=== PATIENT | female | born 2000 | race Two or more races ===

== ENCOUNTER 2018-02-21 16:00 | Observation (INO) | payer MEDICAID, OTHER | END 2018-02-21 17:15 | disposition home or self-care (01) | DRG 566 | LOC: LDRP 16:00 | PROVIDERS: ADMIT Obstetrics & Gynecology; ATTEND Obstetrics & Gynecology | DX: O46.8X2 Other antepartum hemorrhage, second trimester (principal); K62.5 Hemorrhage of anus and rectum; Z3A.25 25 weeks gestation of pregnancy | CPT/HCPCS: 59025; 76815; 81002; G0378 ==

== ENCOUNTER 2018-04-19 10:27 | Observation (INO) | payer MEDICAID ==
[2018-04-19 11:54] LABS: Basophils # (auto) 0 uL; Mean Corpuscular Volume 74.3 fL (80.0-100.0); Monocytes # (auto) 0.8 uL; White Blood Cell 11.6 10^3/uL (4.4-10.8)
[2018-04-19 11:56] LABS: Basophils % (auto) 0.2 % (0.0-2.0); Eosinophils # (auto) 0 uL; Eosinophils % (auto) 0.4 % (0.0-7.0); Hematocrit 33.1 % (36.0-46.0); Lymphocytes # (auto) 2.2 uL; Mean Corpuscular Hemoglobin 24.7 pg (28.0-32.0); Mean Corpuscular Hgb Conc. 33.3 g/dL (32.0-36.0); Monocytes % (auto) 7.3 % (0.0-12.0); Neutrophils # (auto) 8.5 uL; Neutrophils % (auto) 73.1 % (37.0-80.0); Nucleated Red Blood Cells % 0.1 %; Platelet Count (auto) 249 10^3/uL (140-450); Red Blood Cells 4.46 10^6/uL (4.0-5.20); Red Cell Distribution Width 15.5 % (11.8-14.3)
[2018-04-19 12:07] LABS: INR 0.95 (0.9-1.15); Partial Thromboplastin Time 29.5 sec (23.78-33.04); Prothrombin Time 10.2 sec (9.27-12.13)
[2018-04-19 12:09] LABS: Albumin 2.7 g/dL (3.4-5.0); BUN/Creatinine Ratio 18.2; Bilirubin, Total 0.2 mg/dL (0.2-1.0); Total Protein 7.3 g/dL (6.4-8.2); Uric Acid 3.7 mg/dL (2.6-6.0)
[2018-04-19 12:11] LABS: Urine Bacteria MOD /hpf (None Seen); Urine Blood Negative /uL (Negative); Urine Mucus FEW (None Seen); Urine Specific Gravity 1.019 (1.001-1.035); Urine WBC 26 /hpf (0 - 5)
[2018-04-26] MEDS ORDERED: PREN-96 PO (12:06)
== END 2018-04-19 12:40 | disposition home or self-care (01) | DRG 566 ==
LOC: LDRP 10:27
PROVIDERS: ADMIT Obstetrics & Gynecology; ATTEND Obstetrics & Gynecology
DX: O26.893 Other specified pregnancy related conditions, third trimester (principal); Z3A.34 34 weeks gestation of pregnancy
CPT/HCPCS: 36415; 59025; 76805; 80053; 81001; 81002; 84550; 85025; 85610; 85730; G0378

== ENCOUNTER 2018-05-17 10:05 | Observation (INO) | payer MEDICAID ==
[~2018-05-17 10:05] MED LIST: FOLI1TAB6 PO; PREN-96 PO
== END 2018-05-17 11:20 | disposition home or self-care (01) | DRG 566 ==
LOC: LDRP 10:05
PROVIDERS: ADMIT Obstetrics & Gynecology; ATTEND Obstetrics & Gynecology
DX: O99.89 Other specified diseases and conditions complicating pregnancy, childbirth and the puerperium (principal); N13.30 Unspecified hydronephrosis; Z3A.37 37 weeks gestation of pregnancy
CPT/HCPCS: 59025; 81002; G0378

== ENCOUNTER 2018-05-24 09:45 | Observation (INO) | payer MEDICAID | END 2018-05-24 11:00 | disposition home or self-care (01) | DRG 566 | LOC: LDRP 09:45 | PROVIDERS: ADMIT Specialist; ATTEND Specialist | DX: O99.89 Other specified diseases and conditions complicating pregnancy, childbirth and the puerperium (principal); N13.30 Unspecified hydronephrosis; O10.913 Unspecified pre-existing hypertension complicating pregnancy, third trimester; Z3A.38 38 weeks gestation of pregnancy | CPT/HCPCS: 59025; 81002; G0378 ==

== ENCOUNTER 2018-05-31 10:55 | Observation (INO) | payer MEDICAID | END 2018-05-31 12:42 | disposition home or self-care (01) | DRG 566 | LOC: LDRP 10:55 | PROVIDERS: ADMIT Obstetrics & Gynecology; ATTEND Obstetrics & Gynecology | DX: O99.89 Other specified diseases and conditions complicating pregnancy, childbirth and the puerperium (principal); N13.30 Unspecified hydronephrosis; O10.913 Unspecified pre-existing hypertension complicating pregnancy, third trimester; Z3A.39 39 weeks gestation of pregnancy | CPT/HCPCS: 59025; 76805; 76818; 81002; G0378 ==

== ENCOUNTER 2018-06-05 08:55 | Observation (INO) | payer MEDICAID | END 2018-06-05 10:08 | disposition home or self-care (01) | DRG 566 | LOC: LDRP 08:55 | PROVIDERS: ADMIT Obstetrics & Gynecology; ATTEND Obstetrics & Gynecology | DX: O48.0 Post-term pregnancy (principal); O13.3 Gestational [pregnancy-induced] hypertension without significant proteinuria, third trimester; Z3A.40 40 weeks gestation of pregnancy | CPT/HCPCS: 59025; 76818; 81002; G0378 ==

== ENCOUNTER 2018-06-07 09:55 | Observation (INO) | payer MEDICAID ==
[2018-06-07 12:59] LABS: Albumin 2.4 g/dL (3.4-5.0); BUN/Creatinine Ratio 14.3; Bilirubin, Total 0.2 mg/dL (0.2-1.0); Calcium 8.2 mg/dL (8.5-10.1); Potassium 3.7 mmol/L (3.5-5.1); Total Protein 6.7 g/dL (6.4-8.2); Uric Acid 4.5 mg/dL (2.6-6.0)
[2018-06-07 13:00] LABS: Urine Bacteria FEW /hpf (None Seen); Urine Blood Negative /uL (Negative); Urine Specific Gravity 1.012 (1.001-1.035); Urine WBC 5 /hpf (0 - 5)
[2018-06-07 13:03] LABS: Basophils # (auto) 0 uL; Basophils % (auto) 0.3 % (0.0-2.0); Eosinophils # (auto) 0 uL; Lymphocytes # (auto) 1.7 uL; Lymphocytes % (auto) 18.1 % (10.0-50.0); Mean Corpuscular Hemoglobin 25.8 pg (28.0-32.0); Nucleated Red Blood Cells % 0.1 %
[2018-06-07 13:08] LABS: Eosinophils % (auto) 0.4 % (0.0-7.0); Hematocrit 34.1 % (36.0-46.0); Hemoglobin 11.6 g/dL (12.2-16.2); Mean Corpuscular Hgb Conc. 34.1 g/dL (32.0-36.0); Mean Corpuscular Volume 75.7 fL (80.0-100.0); Monocytes # (auto) 0.5 uL; Monocytes % (auto) 5.2 % (0.0-12.0); Neutrophils # (auto) 7.3 uL; Platelet Count (auto) 192 10^3/uL (140-450); Red Blood Cells 4.51 10^6/uL (4.0-5.20); Red Cell Distribution Width 19.3 % (11.8-14.3); White Blood Cell 9.6 10^3/uL (4.4-10.8)
[2018-06-07 13:25] LABS: INR 0.9 (0.9-1.15); Partial Thromboplastin Time 28.5 sec (23.78-33.04); Prothrombin Time 9.7 sec (9.27-12.13)
[2018-06-07] MEDS ORDERED: FERR-7 PO (14:42)
== END 2018-06-07 14:30 | disposition home or self-care (01) | DRG 566 ==
LOC: LDRP 09:55
PROVIDERS: ADMIT Specialist; ATTEND Specialist
DX: O26.893 Other specified pregnancy related conditions, third trimester (principal); O48.0 Post-term pregnancy; R10.30 Lower abdominal pain, unspecified; Z3A.40 40 weeks gestation of pregnancy
CPT/HCPCS: 36415; 59025; 76818; 80053; 81001; 81002; 84550; 85025; 85362; 85379; 85610; 85730; G0378

== ENCOUNTER 2018-06-08 01:44 | Inpatient (IN) | payer MEDICAID ==
[~2018-06-08] VITALS: Ht 165.1 cm; Wt 117.5 kg
[~2018-06-08 01:44] MED LIST changes: +FERR-7 PO
[2018-06-08] MEDS: LACTATED RINGER'S 1,000 ML IV SCH ×2 (04:21→10:48)
[2018-06-08] MEDS ORDERED: LACT. RINGERS/OXYTOCIN 20UNITS 1,000 ML IV SCH (04:26)
[2018-06-08] MEDS ORDERED: CARBOPROST TROMETHAMINE 250 MCG/1ML VIAL IM PRN (04:30)
[2018-06-08] MEDS ORDERED: PHISODERM TOP SOLN 240ML BTL TOP PRN (04:30)
[2018-06-08] MEDS ORDERED: WITCH HAZEL-GLYCERIN PAD TOP PRN (04:30)
[2018-06-08] MEDS ORDERED: NALOXONE HCL 0.4 MG/ML VIAL IV ONE ×2 (04:30→06:30)
[2018-06-08] MEDS ORDERED: NALBUPHINE HCL 10 MG/1ml INJECTION IV PRN (04:30)
[2018-06-08] MEDS ORDERED: LIDOCAINE HCL 2 %PF INJ 10ML AMP IJ ONE (04:30)
[2018-06-08] MEDS ORDERED: LIDOCAINE 2% (LOCAL ANESTH.) PF 5ml SDV ID ONE ×3 (04:30→05:30)
[2018-06-08] MEDS ORDERED: fentaNYL W ROPIVACAINE 150 ML EPI SCH ×2 (04:30→06:30)
[2018-06-08] MEDS ORDERED: fentaNYL CITRATE 100 MCG/2 ML VL IV ONE (04:30)
[2018-06-08] MEDS ORDERED: METHYLERGONOVINE MALEATE 0.2 MG/ML AMP IM PRN (04:30)
[2018-06-08] MEDS ORDERED: DERMOPLAST 60ML BOTTLE TOP PRN (04:30)
[2018-06-08] MEDS ORDERED: ePHEDrine SULFATE 50 MG/ML AMP IV ONE ×2 (04:30→06:30)
[2018-06-08] MEDS ORDERED: LIDOCAINE 2%HCL (LOCAL ANESTH.) INJ 10ml MDV IJ ONE (04:45)
[2018-06-08 05:00] LABS: Basophils # (auto) 0.1 uL; Eosinophils # (auto) 0.1 uL; Hemoglobin 12.7 g/dL (12.2-16.2); Lymphocytes # (auto) 1.8 uL; Mean Corpuscular Hemoglobin 25.1 pg (28.0-32.0); Mean Corpuscular Hgb Conc. 33.2 g/dL (32.0-36.0); Red Cell Distribution Width 19.2 % (11.8-14.3); White Blood Cell 15.3 10^3/uL (4.4-10.8)
[2018-06-08 05:01] LABS: Basophils % (auto) 0.4 % (0.0-2.0); Eosinophils % (auto) 0.3 % (0.0-7.0); Hematocrit 38.1 % (36.0-46.0); Lymphocytes % (auto) 11.7 % (10.0-50.0); Mean Corpuscular Volume 75.6 fL (80.0-100.0); Monocytes # (auto) 0.9 uL; Monocytes % (auto) 5.6 % (0.0-12.0); Neutrophils # (auto) 12.5 uL; Platelet Count (auto) 219 10^3/uL (140-450); Red Blood Cells 5.04 10^6/uL (4.0-5.20)
[2018-06-08 05:14] LABS: INR 0.87 (0.9-1.15); Partial Thromboplastin Time 29.2 sec (23.78-33.04); Prothrombin Time 9.4 sec (9.27-12.13)
[2018-06-08 05:15] LABS: Albumin 2.6 g/dL (3.4-5.0); BUN/Creatinine Ratio 17.6; Bilirubin, Total 0.2 mg/dL (0.2-1.0); Calcium 8.3 mg/dL (8.5-10.1); Potassium 3.8 mmol/L (3.5-5.1); Total Protein 7.3 g/dL (6.4-8.2)
[2018-06-08] MEDS ORDERED: LIDOCAINE 2% (LOCAL ANESTH.) PF 5ml SDV IJ ONE (06:00)
[2018-06-08] MEDS ORDERED: SODIUM CHLORIDE 0.9% 500 ML IV PRN (06:25)
[2018-06-08 07:28] LABS: Urine Bacteria NONE SEEN /hpf (None Seen); Urine Blood 1+ /uL (Negative); Urine Specific Gravity 1.011 (1.001-1.035); Urine WBC 11 /hpf (0 - 5)
[2018-06-08] MEDS ORDERED: IBUPROFEN 600 MG TAB PO PRN (09:00)
[2018-06-08] MEDS: DOCUSATE CALCIUM 240 MG CAP PO SCH (10:00)
[2018-06-08 15:30] VITALS: BP 133/79
[2018-06-08 19:00] VITALS: BP 137/87
[2018-06-08 23:00] VITALS: BP 118/66
[2018-06-09 03:07] VITALS: BP 121/61
[2018-06-09 05:11] LABS: RPR Non Reactive (Non Reactive)
[2018-06-09 07:20] VITALS: BP 114/51
[2018-06-09] MEDS: DOCUSATE CALCIUM 240 MG CAP PO SCH (10:39)
[2018-06-09] MEDS ORDERED: MIDAZOLAM HCL 1MG/1ML-2 ML VIAL ONE (11:43)
[2018-06-09] MEDS ORDERED: ANGIOMAX 250 MG VIAL IV ONE (11:43)
[2018-06-09] MEDS ORDERED: SODIUM CHL 0.9% 0 ML ONE (11:43)
[2018-06-09] MEDS ORDERED: fentaNYL CITRATE 100 MCG/2 ML VL ONE (11:44)
== END 2018-06-09 11:30 | disposition home or self-care (01) | DRG 560 ==
LOC: LDRP 01:44 → OBSVTOIN 01:44 → LDRP 08:50
PROVIDERS: ADMIT Specialist; ATTEND Specialist
PROC: 10E0XZZ Delivery of Products of Conception, External Approach (ICD-10-PCS; principal; 2018-06-08)
PROC: 0KQM0ZZ Repair Perineum Muscle, Open Approach (ICD-10-PCS; 2018-06-08)
PROC: 3E0R3BZ Introduction of Anesthetic Agent into Spinal Canal, Percutaneous Approach (ICD-10-PCS; 2018-06-08)
PROC: 00HU33Z Insertion of Infusion Device into Spinal Canal, Percutaneous Approach (ICD-10-PCS; 2018-06-08)
DX: O16.4 Unspecified maternal hypertension, complicating childbirth (principal); O77.0 Labor and delivery complicated by meconium in amniotic fluid; O70.1 Second degree perineal laceration during delivery; Z37.0 Single live birth; Z3A.40 40 weeks gestation of pregnancy; Z87.19 Personal history of other diseases of the digestive system
CPT/HCPCS: 36415; 51702; 59025; 59409; 62282; 80053; 81001; 81002; 85025; 85610; 85730; 86592; 86850; 86900; 86901; 90471; 94762; 96365; 96366; G0378; J2001; J2250; J2590; J3010

== ENCOUNTER 2018-07-02 08:04 | Emergency (ER) | payer MEDICAID ==
[~2018-07-02] VITALS: Ht 165.1 cm; Wt 103.4 kg
[2018-07-02 08:11] VITALS: BP 143/91
[2018-07-02 08:37] LABS: Urine Bacteria FEW /hpf (None Seen); Urine Blood 2+ /uL (Negative); Urine Specific Gravity 1.015 (1.001-1.035); Urine WBC 49 /hpf (0 - 5)
[2018-07-02 09:50] LABS: Basophils # (auto) 0 uL; Basophils % (auto) 0.3 % (0.0-2.0); Eosinophils # (auto) 0 uL; Hemoglobin 13.3 g/dL (12.2-16.2); Lymphocytes # (auto) 1.5 uL; Monocytes # (auto) 0.4 uL; Neutrophils # (auto) 9.2 uL; White Blood Cell 11.2 10^3/uL (4.4-10.8)
[2018-07-02 09:53] LABS: Eosinophils % (auto) 0.2 % (0.0-7.0); Hematocrit 40.3 % (36.0-46.0); Lymphocytes % (auto) 13.4 % (10.0-50.0); Mean Corpuscular Hemoglobin 24.6 pg (28.0-32.0); Mean Corpuscular Hgb Conc. 32.9 g/dL (32.0-36.0); Mean Corpuscular Volume 74.6 fL (80.0-100.0); Monocytes % (auto) 3.4 % (0.0-12.0); Neutrophils % (auto) 82.7 % (37.0-80.0); Nucleated Red Blood Cells % 0.2 %; Platelet Count (auto) 292 10^3/uL (140-450); Red Cell Distribution Width 17.4 % (11.8-14.3)
[2018-07-02 10:10] LABS: Albumin 3.8 g/dL (3.4-5.0); Bilirubin, Total 0.5 mg/dL (0.2-1.0); Calcium 8.6 mg/dL (8.5-10.1); Potassium 3.6 mmol/L (3.5-5.1); Total Protein 7.8 g/dL (6.4-8.2)
[2018-07-02] MEDS ORDERED: KETOROLAC TROMETH 60MG/2ML VIAL IM ONE (10:15)
== END 2018-07-02 10:46 | disposition home or self-care (01) ==
LOC: ER 08:04
DX: K80.20 Calculus of gallbladder without cholecystitis without obstruction (principal); N39.0 Urinary tract infection, site not specified
CPT/HCPCS: 36415; 76705; 80053; 81001; 81025; 83690; 85025; 96372; 99285; J1885

== ENCOUNTER 2020-11-23 10:04 | Emergency (ER) | payer MEDICAID ==
[~2020-11-23] VITALS: Ht 165.1 cm; Wt 132.0 kg
[2020-11-23 10:07] VITALS: BP 137/77
[2020-11-23] MEDS ORDERED: KETOROLAC TROMETH 30 MG/ML 1ML VIAL IV ONE (10:30)
[2020-11-23] MEDS ORDERED: SODIUM CHLORIDE 0.9% 1,000 ML IV ONE ×2 (10:30)
[2020-11-23] MEDS ORDERED: ONDANSETRON HCL 4 MG/2 ML VIAL IV ONE (10:30)
[2020-11-23 10:45] LABS: Urine Bacteria NONE SEEN /hpf (None Seen); Urine Blood Negative /uL (Negative); Urine Specific Gravity 1.018 (1.001-1.035); Urine WBC 74 /hpf (0 - 5)
[2020-11-23 10:58] LABS: Basophils # (auto) 0.1 10 ^3/uL (0-0.2); Basophils % (auto) 0.5 % (0.0-2.0); Eosinophils # (auto) 0 10 ^3/uL (0-0.8); Eosinophils % (auto) 0.3 % (0.0-7.0); Monocytes # (auto) 0.6 10 ^3/uL (0-1.3); Neutrophils # (auto) 11.9 10 ^3/uL (1.6-8.6)
[2020-11-23 11:02] LABS: Hemoglobin 12.5 g/dL (12.2-16.2); Lymphocytes # (auto) 1.7 10 ^3/uL (0.4-5.4); Mean Corpuscular Hemoglobin 24.8 pg (28.0-32.0); Mean Corpuscular Hgb Conc. 33.8 g/dL (32.0-36.0); Mean Corpuscular Volume 73.4 fL (80.0-100.0); Monocytes % (auto) 3.9 % (0.0-12.0); Neutrophils % (auto) 83.3 % (37.0-80.0); Nucleated Red Blood Cells % 0.1 %; Platelet Count (auto) 325 10^3/uL (140-450); Red Blood Cells 5.05 10^6/uL (4.0-5.20); Red Cell Distribution Width 15.8 % (11.8-14.3); White Blood Cell 14.3 10^3/uL (4.4-10.8)
[2020-11-23 11:16] LABS: Albumin 3.7 g/dL (3.4-5.0); Calcium 8.7 mg/dL (8.5-10.1); Potassium 3.7 mmol/L (3.5-5.1)
[2020-11-23 11:20] LABS: BUN/Creatinine Ratio 14.3; Bilirubin, Total 0.4 mg/dL (0.2-1.0); Total Protein 8.4 g/dL (6.4-8.2)
[2020-11-23] MEDS ORDERED: cefTRIAXone 1GM/50ML D5W 50 ML IV ONE (12:00)
== END 2020-11-23 12:27 | disposition home or self-care (01) ==
LOC: ER 10:04
DX: K80.20 Calculus of gallbladder without cholecystitis without obstruction (principal); N39.0 Urinary tract infection, site not specified
CPT/HCPCS: 36415; 76705; 80053; 81001; 82150; 83690; 85025; 96361; 96365; 96375; 99284; J0696; J1885; J2405; J7030

== ENCOUNTER 2022-02-28 03:04 | Inpatient (IN) | payer MEDICAID ==
[~2022-02-28] VITALS: Ht 160 cm; Wt 139.8 kg
[2022-02-28 04:06] LABS: Basophils # (auto) 0.1 10 ^3/uL (0-0.2); Eosinophils # (auto) 0.1 10 ^3/uL (0-0.8); Eosinophils % (auto) 0.6 % (0.0-7.0); Monocytes # (auto) 0.6 10 ^3/uL (0-1.3)
[2022-02-28 04:10] LABS: Basophils % (auto) 0.6 % (0.0-2.0); Hematocrit 36.4 % (36.0-46.0); Hemoglobin 12.4 g/dL (12.2-16.2); Lymphocytes % (auto) 15.4 % (10.0-50.0); Mean Corpuscular Hemoglobin 24.1 pg (28.0-32.0); Mean Corpuscular Hgb Conc. 34.1 g/dL (32.0-36.0); Mean Corpuscular Volume 70.6 fL (80.0-100.0); Monocytes % (auto) 5.1 % (0.0-12.0); Neutrophils % (auto) 78.3 % (37.0-80.0); Nucleated Red Blood Cells % 0.1 %; Red Blood Cells 5.16 10^6/uL (4.0-5.20); Red Cell Distribution Width 16.4 % (11.8-14.3); White Blood Cell 12.7 10^3/uL (4.4-10.8)
[2022-02-28 04:29] LABS: Albumin 3.5 g/dL (3.4-5.0); Calcium 8.7 mg/dL (8.5-10.1); Potassium 3.6 mmol/L (3.5-5.1)
[2022-02-28] MEDS ORDERED: HYDROmorphone HCL 2 MG/ML VL/or syr IV ONE (04:30)
[2022-02-28 04:31] LABS: BUN/Creatinine Ratio 17.6
[2022-02-28 04:35] LABS: Bilirubin, Total 0.4 mg/dL (0.2-1.0); Total Protein 7.9 g/dL (6.4-8.2)
[2022-02-28 05:18] LABS: Urine Bacteria NONE SEEN /hpf (None Seen); Urine Blood Negative /uL (Negative); Urine Specific Gravity 1.018 (1.001-1.035); Urine WBC 7 /hpf (0 - 5)
[2022-02-28] MEDS ORDERED: PERCOT PO (06:08)
[2022-02-28] MEDS ORDERED: MORPHINE SULFATE 4 MG/ML SYR/VIAL IV ONE (07:00)
[2022-02-28] MEDS ORDERED: SODIUM CHLORIDE 0.9% 1,000 ML IVB ONE (07:00)
[2022-02-28] MEDS ORDERED: ONDANSETRON HCL 4 MG/2 ML VIAL IV ONE (07:00)
[2022-02-28] MEDS ORDERED: PANTOPRAZOLE 40 MG/10 ML VIAL INJ IV ONE (07:00)
[2022-02-28] MEDS ORDERED: cefTRIAXone 1GM/50ML D5W 50 ML IV ONE (07:15)
[2022-02-28] MEDS ORDERED: MORPHINE SULFATE INJECTION 2 MG/ML SYRG IV PRN (08:00)
[2022-02-28] MEDS ORDERED: SODIUM CHLORIDE 0.9% 1,000 ML IV SCH (08:00)
[2022-02-28 14:38] VITALS: BP 164/99
[2022-02-28] MEDS: ONDANSETRON HCL 4 MG/2 ML VIAL IV PRN ×2 (15:21→20:27)
[2022-02-28 16:30] VITALS: BP 167/100
[2022-02-28] MEDS: D5W/SOD CHL 0.45% 1,000 ML IV SCH (16:55)
[2022-02-28 17:55] VITALS: BP 152/98
[2022-02-28] MEDS: HYDROmorphone HCL 2 MG/ML VL/or syr IV PRN (20:27)
[2022-02-28 22:00] VITALS: BP 122/53
[2022-03-01] MEDS: ONDANSETRON HCL 4 MG/2 ML VIAL IV PRN (03:54)
[2022-03-01] MEDS: HYDROmorphone HCL 2 MG/ML VL/or syr IV PRN ×5 (03:54→20:21)
[2022-03-01] MEDS: D5W/SOD CHL 0.45% 1,000 ML IV SCH ×3 (04:56→15:19)
[2022-03-01 05:00] VITALS: BP 120/46
[2022-03-01 05:42] LABS: Basophils # (auto) 0.1 10 ^3/uL (0-0.2); Eosinophils # (auto) 0.1 10 ^3/uL (0-0.8); Lymphocytes # (auto) 2.6 10 ^3/uL (0.4-5.4); Mean Corpuscular Hemoglobin 24.4 pg (28.0-32.0); Monocytes # (auto) 1.3 10 ^3/uL (0-1.3); Nucleated Red Blood Cells % 0.1 %
[2022-03-01 05:46] LABS: Basophils % (auto) 0.5 % (0.0-2.0); Eosinophils % (auto) 0.4 % (0.0-7.0); Hematocrit 33.4 % (36.0-46.0); Hemoglobin 11.7 g/dL (12.2-16.2); Lymphocytes % (auto) 15.9 % (10.0-50.0); Mean Corpuscular Hgb Conc. 35.1 g/dL (32.0-36.0); Mean Corpuscular Volume 69.6 fL (80.0-100.0); Neutrophils # (auto) 12.1 10 ^3/uL (1.6-8.6); Neutrophils % (auto) 75.2 % (37.0-80.0); Red Cell Distribution Width 16.2 % (11.8-14.3); White Blood Cell 16.1 10^3/uL (4.4-10.8)
[2022-03-01 06:00] LABS: Potassium 3.6 mmol/L (3.5-5.1)
[2022-03-01 06:07] LABS: Albumin 3.3 g/dL (3.4-5.0); BUN/Creatinine Ratio 12.5; Bilirubin, Total 0.9 mg/dL (0.2-1.0); Calcium 8.3 mg/dL (8.5-10.1); Total Protein 7.4 g/dL (6.4-8.2)
[2022-03-01 08:00] VITALS: BP 124/76
[2022-03-01 09:00] VITALS: BP 124/76
[2022-03-01] MEDS: cefTRIAXone 1GM/50ML D5W 50 ML IV SCH (09:12)
[2022-03-01 13:00] VITALS: BP 112/45
[2022-03-01] MEDS: PANTOPRAZOLE 40 MG/10 ML VIAL INJ IV SCH (14:01)
[2022-03-01] MEDS: ENOXAPARIN SOD 40 MG/0.4 ML SYRINGE SC SCH ×2 (14:02→21:35)
[2022-03-01 17:00] VITALS: BP 155/99
[2022-03-01 22:00] VITALS: BP 115/49
[2022-03-01] MEDS: ACETAMINOPHEN 325 MG TAB PO PRN (22:55)
[2022-03-02] MEDS: HYDROmorphone HCL 2 MG/ML VL/or syr IV PRN ×4 (02:35→20:56)
[2022-03-02] MEDS: D5W/SOD CHL 0.45% 1,000 ML IV SCH ×3 (03:57→21:15)
[2022-03-02 05:00] VITALS: BP 113/67
[2022-03-02 08:00] VITALS: BP 146/91
[2022-03-02 09:00] VITALS: BP 146/97
[2022-03-02] MEDS: PANTOPRAZOLE 40 MG/10 ML VIAL INJ IV SCH (10:19)
[2022-03-02] MEDS: cefTRIAXone 1GM/50ML D5W 50 ML IV SCH (10:19)
[2022-03-02] MEDS: ENOXAPARIN SOD 40 MG/0.4 ML SYRINGE SC SCH ×2 (10:20→22:09)
[2022-03-02 15:00] VITALS: BP_SYST 103; BP_SYST 116; BP_SYST 99; BP_DIAS 42; BP_DIAS 53; BP_DIAS 63
[2022-03-02 16:40] VITALS: BP 130/70
[2022-03-02] MEDS: ACETAMINOPHEN 325 MG TAB PO PRN (16:49)
[2022-03-02] MEDS: PIPERACILLIN-TAZOB 3.375GM 100 ML IV SCH (18:34)
[2022-03-02 22:00] VITALS: BP 127/75
[2022-03-03] MEDS: HYDROmorphone HCL 2 MG/ML VL/or syr IV PRN ×3 (03:57→17:39)
[2022-03-03 05:00] VITALS: BP 147/74
[2022-03-03] MEDS: D5W/SOD CHL 0.45% 1,000 ML IV SCH ×2 (05:29→13:15)
[2022-03-03] MEDS: PIPERACILLIN-TAZOB 3.375GM 100 ML IV SCH ×3 (05:29→12:37)
[2022-03-03 08:00] VITALS: BP 119/53
[2022-03-03 08:30] VITALS: BP 119/53
[2022-03-03] MEDS: PANTOPRAZOLE 40 MG/10 ML VIAL INJ IV SCH (10:16)
[2022-03-03] MEDS: ENOXAPARIN SOD 40 MG/0.4 ML SYRINGE SC SCH (10:16)
[2022-03-03 11:22] LABS: Albumin 2.9 g/dL (3.4-5.0); BUN/Creatinine Ratio 6.3; Calcium 8.3 mg/dL (8.5-10.1); Total Protein 7.5 g/dL (6.4-8.2)
[2022-03-03] MEDS ORDERED: POTASSIUM EFFERVESENT TAB 25 MEQ GT ONE (12:00)
[2022-03-03] MEDS ORDERED: POTASSIUM CHLORIDE 40 MEQ, LIDOCAINE 1% (LOCAL ANESTH.) 4 ML in SODIUM CHL 0.9% 250 ML IV ONE (12:00)
[2022-03-03 12:30] VITALS: BP 130/63
[2022-03-03 16:30] VITALS: BP 116/51
[2022-03-03 18:10] VITALS: BP 116/55
[2022-03-04] MEDS ORDERED: ENOXAPARIN SOD 40 MG/0.4 ML SYRINGE SC SCH (10:00)
== END 2022-03-03 18:48 | disposition home or self-care (01) ==
LOC: ER 03:04 → OVERFLOW 07:57 → EAST 11:35
PROVIDERS: ADMIT Internal Medicine; ATTEND Internal Medicine
DX: K80.00 Calculus of gallbladder with acute cholecystitis without obstruction (principal); K76.0 Fatty (change of) liver, not elsewhere classified; Z68.43 Body mass index [BMI] 50.0-59.9, adult; D72.829 Elevated white blood cell count, unspecified; I10 Essential (primary) hypertension; E66.01 Morbid (severe) obesity due to excess calories; K57.30 Diverticulosis of large intestine without perforation or abscess without bleeding; E87.6 Hypokalemia; Z83.3 Family history of diabetes mellitus; Z20.822 Contact with and (suspected) exposure to COVID-19
CPT/HCPCS: 36415; 74176; 76705; 78226; 80053; 81001; 83690; 84702; 85025; 87040; 96361; 96365; 96375; C9113; G0378; J0696; J2001; J2405; J2543

== ENCOUNTER 2025-09-25 09:28 | Emergency (ER) | payer MEDICAID ==
[~2025-09-25] VITALS: Ht 165.1 cm; Wt 136.9 kg
[~2025-09-25 09:28] MED LIST changes: +FOLI-119 PO; -FOLI1TAB6 PO; +PERCOT PO
[2025-09-25 09:29] VITALS: BP 164/99; PULSE 99; RESP 16; TEMP 98; O2SAT 99
--- NOTE | 2025-09-25 10:24 | ED.PDOC ---
Back pain HPI HPI Comments The patient presented with pain radiating from the left glute down to the left leg. The patient reported experiencing pain since Thursday, radiating from the left glute to the left leg, sometimes shooting down the back part of the leg. The pain increased when bending down or standing up, and it felt like sciatica. The patient did not report having had this pain before and was using cannabis for symptom management. The patient mentioned a history of nerve-related spasms and was previously prescribed a muscle relaxant, which was not effective. The patient reported no bowel or bladder incontinence, numbness, back surgeries, fevers, chills, or IV drug use. The last menstrual period was on August 19, and the patient was planning to start control next month. Denies trauma Denies history of chronic steroid use or history of osteoporosis Denies history of cancer Denies fevers chills night sweats nausea vomiting unintentional weight loss Denies abdominal tearing pain Denies syncope Denies urinary changes or urinary incontinence Denies numbness tingling of the groin/inner thigh Denies previous back procedures or surgeries Chief Complaint: Lower Extremity Time Seen by MD: 10:15 Primary Care Provider: NONE Reviewed Notes: Nurses Notes, Medications, Allergies Allergies: Coded Allergies: NO KNOWN ALLERGIES (Unverified , 06/08/18) Home Meds Active Scripts Oxycodone W/ Acetaminophen (Percocet 5/325MG) 1 Tab Tb, 1 TAB PO BID for 7 Days, #14 TAB Prov:DOUGLAS LEMOS MD 02/28/22 Reported Medications Ferrous Sulfate (Iron) 325 Mg Tab, 325 MG PO DAILY, TAB 06/07/18 Folic Acid (Folic Acid) 1 Mg Tab, 1 MG PO DAILY for 30 Days, MG 05/10/18 Vit W/ Ferrous Fumara ( One Daily) Daily Tab, 1 TAB PO DAILY, #90 TAB 3 Refills 04/26/18 Information Source: Patient Mode of Arrival: Ambulatory Timing: Days Duration: Since onset, Days Severity: Moderate Prehospital treatment: None Quality: Aching Onset: Spontaneous History of: None Associated signs and symptoms: None Past Medical History PAST MEDICAL HISTORY: Gallstones Surgical History: Denies all surgeries AIR TRAFFIC INSTRUCTOR History: Denies all AIR TRAFFIC INSTRUCTOR Hx Family History Family History: Reviewed,noncontributory to illness, Unknown Social History Smoker: Non-Smoker Alcohol: Denies ETOH Use Drugs: Denies Drug Use Lives In: Home Constitutional: denies: chills, diaphoresis, fatigue, fever, malaise, sweats, weakness, others EENTM: denies: blurred vision, double vision, ear bleeding, ear discharge, ear drainage, ear pain, ear ringing, eye pain, eye redness, hearing loss, mouth pain, mouth swelling, nasal discharge, nose bleeding, nose congestion, nose pain, photophobia, tearing, throat pain, throat swelling, voice changes, others Respiratory: denies: cough, hemoptysis, orthopnea, SOB at rest, shortness of breath, SOB with excertion, stridor, wheezing, others Cardiovascular: denies: chest pain, dizzy spells, diaphoresis, Dyspnea on exertion, edema, irregular heart beat, left arm pain, lightheadedness, palpitations, PND, syncope, others Gastrointestinal: denies: abdomen distended, abdominal pain, blood streaked bowels, constipated, diarrhea, dysphagia, difficulty swallowing, hematemesis, melena, nausea, poor appetite, poor fluid intake, rectal bleeding, rectal pain, vomiting, others Genitourinary: denies: abnormal vagina bleeding, burning, dyspareunia, dysuria, flank pain, frequency, hematuria, incontinence, pain, , vagina discharge, urgency, others Neurological: denies: dizziness, fainting, headache, left sided numbness, left sided weakness, numbness, paresthesia, pre-existing deficit, right sided numbness, right sided weakness, seizure, speech problems, tingling, tremors, weakness, others Musculoskeletal: reports: back pain (Lumbar region pain which radiates down the left lower extremity); denies: gout, joint pain, joint swelling, muscle pain, muscle stiffness, neck pain, others Integumetry: denies: bruises, change in color, change in hair/nails, dryness, laceration, lesions, lumps, rash, wounds, others Allergic/Immunocompromised: denies: Difficulty Healing, Frequent Infections, Hives, Itching, others Hematologic/Lymphatic: denies: anemia, blood clots, easy bleeding, easy bruising, swollen glands, others Endocrine: denies: excessive hunger, excessive sweating, excessive thirst, excessive urination, flushing, intolerance to cold, intolerance to heat, unexplained weight gain, unexplained weight loss, others Psychiatric: denies: anxiety, bipolar disorder, depression, hopeless, panic disorder, schizophrenia, sleepless, suicidal, others All Other Systems: Reviewed and Negative Physical Exam Exam Comments Left positive straight leg raise test is positive, neurovascular sensation intact. General Appearance: No Apparent Distress, Normal HEENT: Normal ENT Inspection, Pharynx Normal, TMs Normal Neck: Full Range of Motion, Non-Tender, Normal, Normal Inspection Respiratory: Chest Non-Tender, Lungs Clear, No Accessory Muscle Use, No Respiratory Distress, Normal Breath Sounds Cardiovascular: No Edema, No JVD, No Murmur, No Gallop, Normal Peripheral Pulses, Regular Rate/Rhythm Breast Exam: Deferred Gastrointestinal: No Organomegaly, Non Tender, No Pulsatile Mass, Normal Bowel Sounds, Soft Genitalia: Deferred Pelvic: Deferred Rectal: Deferred Extremities: No calf tenderness, Normal capillary refill, Normal inspection, Normal range of motion, Non-tender, No pedal edema Musculoskeletal : Apperance: Normal 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 Was a procedure done?: No Back Pain Differential Dx Differential Diagnosis: Other X-Ray, Labs, Meds, VS Vital Signs Date Time Temp Pulse Resp B/P (MAP) Pulse Ox O2 Delivery O2 Flow Rate FiO2 09/25/25 09:29 98.0 99 16 164/99 99 98.0 X-Ray, Labs, Meds, VS Comment Patient arrives alert and oriented, ABC's intact, afebrile, vital signs stable, saturating well in room air ASSESSMENT: The primary concern was pain radiating from the left glute to the left leg, suggestive of sciatica. The patient had a history of nerve spasms, which might contribute to the current symptoms. The ineffectiveness of the previously prescribed muscle relaxant indicated the need for a different pain management approach. - Treatment: Administered Toradol and a steroid injection for pain relief. - Tests: None indicated in the transcript. - Patient Education: Discussed the importance of follow-up with a primary care physician for further evaluation and management. - Follow-Up: Advised the patient to make an appointment with their primary care doctor for continued care. - Disposition: The patient was advised to remain in the medical facility for further observation after receiving the injections. Patient was given: Prednisone, ketorolac. Tolerated medications with no adverse reaction. Additional MDM Review of External, Non-ED records: External records reviewed. Discussion with independent historian (EMS, family) history obtained from the patient/parents (if applicable) at bedside Chronic conditions affecting care: None Social determinants of health affecting care: None Consideration of admission (observation or admission): I considered escalation of care to admission for this patient, however given the reassuring workup, the patient is safe for outpatient management. Discussion with the Radiology: No Tests considered but not performed: Prescription medication considered but not given: 12 lead EKG interpretation: Time of 1ST Reevaluation: 10:45 Reevaluation 1ST: Unchanged Patient Education/Counseling: Diagnosis, Treatment, Prognosis Family Education/Counseling: No Family Present SEPSIS Sepsis Screen Date sepsis recognized/suspect: Sep 25, 2025 Time Sepsis recognized/suspect: 928 Recent Procedure: No On Antibiotic Therapy: No Respiratory Rate >20: No Heart Rate >90: Yes Temp<36 C (96.8 F) or >38.3 C: No SBP <90 or MAP <65 mmHG: No New Acute Mental Status Change: No Is the patient on CPAP, BIPAP,: No Vital Signs Date Time Temp Pulse Resp B/P (MAP) Pulse Ox O2 Delivery O2 Flow Rate FiO2 09/25/25 09:29 98.0 99 16 164/99 99 98.0 Departure 1 Departure Time of Disposition: 10:46 Impression: Primary Impression: Lumbar radiculopathy, acute Disposition: 01 HOME / SELF CARE / HOMELESS Condition: Stable Discharged With: Self Critical Care Note Critical Care Time?: No Stability Stability form required: No I personally scribed for MARCUS MEDEROS NP ([email or web address]) on 09/25/25 at 10:23. Electronically submitted by Nilo Rudolph ([email or web address]). MARCUS MEDEROS NP Sep 25, 2025 10:23
[2025-09-25] MEDS: methylPREDNISolone SOD SUCC 125 MG/2 ML VL IM ONE (10:46)
[2025-09-25] MEDS: KETOROLAC TROMETH 60MG/2ML VIAL IM ONE (10:47)
== END 2025-09-25 11:16 | disposition home or self-care (01) ==
LOC: ER 09:28
DX: M54.16 Radiculopathy, lumbar region (principal)
CPT/HCPCS: 96372; 99284; J1885; J2919